=== PATIENT | female | born 1995 | race Caucasian/White ===

== ENCOUNTER 2017-04-25 17:10 | Emergency (ER) | payer OTHER, MEDICAID ==
[~2017-04-25 17:10] MED LIST: ATARAX25 MG PO; IBUPROFEN800 MG PO; IRON1 TAB PO; IRON325 M1; MEDROL4 MG; METHYLERGONOVI0.2 MG PO; MICROGESTIN FE1 TAB; NORCO 5/3251 TAB PO; PRENATAL1 EACH PO; VITAMIN D; VITAMIN D5000 UNIT PO
[2017-04-25 17:56] LABS: URINE BILIRUBIN NEGATIVE (NEG); URINE BLOOD SMALL (NEG); URINE GLUCOSE (UA) NEGATIVE (NEG); URINE KETONE NEGATIVE (NEG); URINE LEUKOCYTE ESTERASE POSITIVE (NEG); URINE NITRITE NEGATIVE (NEG); URINE PROTEIN SMALL (NEG); URINE SPECIFIC GRAVITY 1.025 (1.003-1.030)
[2017-04-25 17:57] LABS: URINE APPEARANCE HAZY; URINE COLOR YELLOW
[2017-04-25 18:03] LABS: URINE AMORPHOUS 1+; URINE BACTERIA 1+; URINE MUCUS 1+; URINE RBC RARE /[HPF] (0-5); URINE WBC RARE /[HPF] (0-5)
== END 2017-04-25 19:25 ==
LOC: EDMED 17:10
PROVIDERS: Emergency Medicine
DX: O26.891 Other specified pregnancy related conditions, first trimester (principal); R10.2 Pelvic and perineal pain; Z3A.09 9 weeks gestation of pregnancy